=== PATIENT | male | born 1965 | race Caucasian/White ===

== ENCOUNTER 2023-08-16 17:26 | Emergency (ER) | payer BC ==
[~2023-08-16] VITALS: Ht 172.7 cm; Wt 79.6 kg
[2023-08-16 17:46] VITALS: PULSE 80; RESP 16; TEMP 98.5; O2SAT 98
[2023-08-16] MEDS ORDERED: IBUPROFEN200 MG PO (18:07)
[2023-08-16] MEDS ORDERED: DOXYCYCLINE HY100 MG PO (18:07)
[2023-08-16] MEDS ORDERED: MUPIROCIN22 GM TOP (18:18)
[2023-08-16] MEDS: BACITRACIN ZINC 0.9GM TP ONE (18:24)
[2023-08-16] MEDS: TETANUS/DIPHTHERIA TOX ADULT 0.5 ML SYR IM ONE (18:25)
== END 2023-08-16 18:35 | disposition home or self-care (01) ==
LOC: FSED 17:40
DX: T23.201A Burn of second degree of right hand, unspecified site, initial encounter (principal); G89.11 Acute pain due to trauma; T31.0 Burns involving less than 10% of body surface; X19.XXXA Contact with other heat and hot substances, initial encounter; Z88.6 Allergy status to analgesic agent; Z23 Encounter for immunization; Z79.1 Long term (current) use of non-steroidal anti-inflammatories (NSAID)
CPT/HCPCS: 90471; 90714; 96372; 99283